=== PATIENT | male | born 1955 | race Caucasian/White ===

== ENCOUNTER 2022-05-24 23:07 | Emergency (ER) | payer OTHER ==
[~2022-05-24] VITALS: Ht 180.3 cm; Wt 72.6 kg
[2022-05-24] MEDS ORDERED: THIAMINE HCL 100 MG TABLET PO ONE (23:15)
[2022-05-24] MEDS ORDERED: LIDOCAINE 2%-EPI 1:100,000 20 ML VIAL IJ ONE (23:15)
--- NOTE | 2022-05-24 23:30 | NUR ---
PATIENT AMBULATORY TO RESTROOM WITH STEADY GAIT.
[2022-05-24 23:33] LABS: HEMATOCRIT 35.6 % (36.7-47.1); MEAN CORPUSCULAR HEMOGLOBIN 30.1 uug (23.8-33.4); MEAN CORPUSCULAR VOLUME 87.9 fL (73.0-96.2); PLATELET COUNT (AUTO) 375 K/uL (152-348)
[2022-05-24] MEDS ORDERED: LIDOCAINE 2%-EPI 1:100,000 20 ML VIAL ONE (23:44)
[2022-05-24] MEDS ORDERED: CLONIDINE HCL 0.1 MG TABLET ONE (23:44)
[2022-05-24] MEDS ORDERED: THIAMINE HCL 100 MG TABLET ONE (23:44)
[2022-05-24 23:45] LABS: BILIRUBIN,DIRECT 0.3 mg/dL (0.0-0.2); BILIRUBIN,TOTAL 1.1 mg/dL (0.2-1.0); CREATININE 0.7 mg/dL (0.6-1.3); POTASSIUM 2.9 mmol/L (3.5-5.1); TOTAL PROTEIN, SERUM 7.3 g/dL (6.4-8.2)
[2022-05-24] MEDS ORDERED: CLONIDINE HCL 0.1 MG TABLET PO ONE (23:45)
[2022-05-25] MEDS ORDERED: POTASSIUM BICARBONATE/CIT AC 25 MEQ TABLET.EFF PO ONE (00:15)
[2022-05-25] MEDS ORDERED: POTASSIUM BICARBONATE/CIT AC 25 MEQ TABLET.EFF ONE (00:27)
[2022-05-25 01:33] LABS: *BILIRUBIN,URIN NEGATIVE (NEGATIVE); *BLOOD, URINE NEGATIVE (NEGATIVE); *CLARITY,URINE CLEAR (CLEAR); *COLOR,URINE YELLOW (YELLOW); *KETONES,URINE TRACE (NEGATIVE); LEUKOCYTE ESTERASE ,URINE NEGATIVE (NEGATIVE); NITRITE, URINE NEGATIVE (NEGATIVE); UGLUCOSE NEGATIVE (NEGATIVE)
[2022-05-25] MEDS ORDERED: CLON0.1T PO (01:41)
[2022-05-25] MEDS ORDERED: CHLO25CA22 PO (01:41)
[2022-05-25] MEDS ORDERED: CHLORDIAZEPOXIDE HCL 25 MG CAPSULE ONE (01:50)
[2022-05-25] MEDS ORDERED: CHLORDIAZEPOXIDE HCL 25 MG CAPSULE PO ONE (02:00)
[2022-05-25 02:12] LABS: IRON, SERUM 275 ug/dL (50-175)
--- NOTE | 2022-05-25 02:17 | NUR ---
Patient discharged to home in stable condition with [facility] taking patient home. Written and verbal after care instructions given. Patient verbalizes understanding of instructions. Stressed follow up or return to ER for worsening s/s.
[2022-05-25 02:20] VITALS: BP 159/95
== END 2022-05-25 02:20 | disposition home or self-care (01) ==
LOC: ER 23:07
DX: F10.10 Alcohol abuse, uncomplicated (principal); Y90.6 Blood alcohol level of 120-199 mg/100 ml; I10 Essential (primary) hypertension; E87.6 Hypokalemia; D64.9 Anemia, unspecified
CPT/HCPCS: 36415; 83550; 83735; 85025; 85730; A4663; G0480